=== PATIENT | male | born 1955 | race Caucasian/White ===

== ENCOUNTER 2019-03-20 06:56 | Day surgery (SDC) | payer BC ==
[2019-03-18 12:20] VITALS: BP 144/93
--- NOTE | 2019-03-18 12:49 | PCM.EKG ---
[facility] Test Date: 2019-03-18 Test Time: 12:17:13 Pat Name: YNES HERRERA Department: [id number] Room: Gender: M Scarrer: [employer] : 1955 Requested By: IRINA MELENDREZ Order Number: [id number] Reading MD: Measurements Intervals [place] Rate: 78 P: 64 [place]: 176 QRS: 76 QRSD: 108 T: 69 QT: 394 QTc: 449 Interpretive Statements Normal sinus rhythm Normal ECG No previous ECG available for comparison Please click the below link to view image of tracing.
[2019-03-18 12:57] LABS: BASOPHIL % 0.4 % (0.0-0.2); EOSINOPHIL # 0.3 10^3/uL (0.0-0.2); LYMPHOCYTES % 37.4 % (24.0-44.0); MEAN CORP HGB 33.4 pg (26-34); MONOCYTES # 0.6 10^3/uL (0.3-0.8); MONOCYTES % 11.3 % (5.0-12.0); NEUTROPHIL # 2.4 10^3/uL (1.8-7.7); NEUTROPHILS % 45.7 % (41.0-85.0); RED CELL DISTRIBUTION WIDTH 13.6 % (11.5-14.5)
[2019-03-18 13:14] LABS: CALCIUM 8.9 mg/dL (8.4-10.5)
[~2019-03-20] VITALS: Ht 177.8 cm; Wt 66.7 kg
[~2019-03-20 06:56] MED LIST: AMLO5TAB4 PO; ASPI-484 PO; CALC500T92 PO; DECADRON ONE; DIPRIVAN IV ONE; GABA100C7 PO; LACTATED RINGERS 1,000 ML ONE; LASIX ONE; LIDOCAINE 2% VIAL ONE; MAGN400C PO; METH750T94 PO; MULT-632 PO; PANT40TA3 PO; POLY17PO5 PO; SUBLIMAZE ONE; TACR1CAP4 PO; TAMS-14 PO; TRAM50TA PO; URSO500T3 PO; VERSED ONE; VITA80003 PO; ZOFRAN 4 MG/2 ML VIAL ONE
[2019-03-20] MEDS ORDERED: LACTATED RINGERS 1,000 ML IV SCH ×2 (07:00→09:30)
[2019-03-20 07:02] VITALS: BP 133/84
[2019-03-20] MEDS ORDERED: NS 3000ML IRR IR ONE (07:17)
[2019-03-20] MEDS ORDERED: SODIUM CHLORIDE IR ONE (07:17)
[2019-03-20] MEDS ORDERED: DILAUDID IV PRN (07:30)
[2019-03-20] MEDS ORDERED: SUBLIMAZE IV PRN (07:30)
[2019-03-20] MEDS ORDERED: ZOFRAN 4 MG/2 ML VIAL IV ONE (07:30)
[2019-03-20] MEDS ORDERED: LEVAQUIN 100 ML IV ONE (07:41)
[2019-03-20 09:10] VITALS: BP 136/65
[2019-03-20] MEDS ORDERED: LASIX IV ONE (09:10)
[2019-03-20] MEDS ORDERED: TRAM50TA PO (09:17)
[2019-03-20 09:20] VITALS: BP 135/86
[2019-03-20 09:30] VITALS: BP 137/91
[2019-03-20] MEDS ORDERED: NORCO 7.5MG PO PRN (09:30)
[2019-03-20 09:38] VITALS: BP 150/99
--- NOTE | 2019-03-20 09:49 | OPH ---
DATE OF SURGERY: 03/20/2019 PREOPERATIVE DIAGNOSES: Calculus, left ureter and calculus, left kidney. FINAL DIAGNOSIS: Calculus, left kidney. PROCEDURES: Cystoscopy, left retrograde and left extracorporeal shockwave lithotripsy, left ESWL. DESCRIPTION OF PROCEDURE: The patient was initially brought to the cystoscopy room, was put in supine position on the cystoscopy table. After the patient was given a satisfactory and adequate LMA general anesthesia, the patient was placed in the lithotomy position. The genitalia was then prepped and draped aseptically in the usual manner. First, a 23-Frisian cystoscope was inserted per urethra up to the bladder. With the use of the right angle lens, the bladder was visualized. There was no tumor, no calculi, no ulcerations seen. Initial left retrograde was performed by inserting a 7-Frisian ureteral catheter in the left ureteral orifice and then injected with an Omnipaque dye. The ureter was then visualized and there is no more evidence of ureteral stone, no evidence of obstruction. Probably the patient has passed the ureteral stone presently. After this was done and confirmed that there is no more ureteral stone in the left ureter, the procedure was terminated. Instrument was removed after emptying the bladder with fluid. The patient was then transferred to the lithotripsy room in supine position and initial left renal ultrasound was initially performed which revealed two stones in the left kidney, one in the upper mid pole measuring 5.5 mm in diameter and another stone in the lower pole measuring 8.5 mm in diameter. After localization of the stone with the use of a fluoroscopy and an ultrasound, a left ESWL was then performed using a Dornier Compact Delta II Lithotripter. A total of 2500 shockwaves were delivered to the stones in the left kidney under ultrasound guidance. After fragmentation of the stone as noted in the ultrasound, the procedure was terminated. The patient was awakened, was transferred to the recovery room in stable condition. Amando Lazo MD DR: MALIKA/vicky JOB# [id number]
--- NOTE | 2019-03-20 09:57 | DIREP ---
PROCEDURE:XRAY UROGRAPHY RETROGRADE COMPARISON:None. INDICATIONS:STONE LOCATION TECHNIQUE:6 fluoroscopic images of the abdomen are submitted from the OR. FINDINGS:No filling defects are identified in the left ureter or left renal collecting system. There was drainage of contrast from the left ureter. Incidental note is made of previous kyphoplasty at the L5 level. Surgical clips are present in the right upper quadrant of the abdomen. CONCLUSION:No filling defects are identified in the left ureter or left renal collecting system. Dictated by: Florencio Mitchell M.D. on 03/20/2019 at 09:52 AM
[2019-03-20 09:58] VITALS: BP 142/88
== END 2019-03-20 10:12 | disposition home or self-care (01) ==
LOC: SDC 06:56
PROVIDERS: ATTEND Urology
DX: N20.2 Calculus of kidney with calculus of ureter (principal); M19.90 Unspecified osteoarthritis, unspecified site; I10 Essential (primary) hypertension; Z87.891 Personal history of nicotine dependence; Z79.899 Other long term (current) drug therapy; Z79.01 Long term (current) use of anticoagulants; Z79.82 Long term (current) use of aspirin; Z80.0 Family history of malignant neoplasm of digestive organs; Z80.3 Family history of malignant neoplasm of breast
CPT/HCPCS: 36415; 50590; 52000; 74420; 80053; 85025; 85610; 85730; 93005; A4217 ×2; J1100; J1956; J2001; J2250; J2405; J3010; J3490; J7120; Q9966; 76000; J1940